=== PATIENT | female | born 1965 | race Caucasian/White ===

== ENCOUNTER 2017-05-26 16:46 | Emergency (ER) | payer SELFPAY ==
[2017-05-26 16:47] VITALS: BP 163/85; PULSE 76; RESP 18; TEMP 36.6; O2SAT 94; BMI 47.4
[2017-05-26 17:17] VITALS: O2SAT 98
--- NOTE | 2017-05-26 17:19 | EKG12_ITS ---
Test Reason : SOB Blood Pressure : / mmHG Vent. Rate : 084 BPM Atrial Rate : 084 BPM P-R Int : 186 ms QRS Dur : 078 ms QT Int : 362 ms P-R-T Axes : 034 -31 044 degrees QTc Int : 427 ms Normal sinus rhythm Left axis deviation Septal infarct , age undetermined Abnormal ECG Confirmed by SCARLETT ALVAREZ, JOSE ([id number]), web editor [address] ([id number]) on 05/29/2017 8:42:40 AM Referred By: NITESH Confirmed By:JOSE PANTOJA MD
--- NOTE | 2017-05-26 17:30 | RAD_ITS ---
STUDY: X-RAY CHEST REASON FOR EXAM: Female, 51 years old. Difficulty breathing with asthma TECHNIQUE: PA and lateral views of the chest. COMPARISON: None. FINDINGS: The lungs are clear and expanded. There is no demonstrated pleural abnormality. Normal size heart. Normal mediastinum and cheo. Normal visualized pulmonary arteries. Normal visualized aortic arch and descending thoracic aorta. Normal visualized thoracic spine. Normal visualized ribs, clavicles, and shoulders. There is no demonstrated abnormality of the visualized soft tissue structures of the upper abdomen. RAD/Chest PA and Lateral IMPRESSION: Normal x-ray examination of the chest. Electronically Signed: Colby Mackey DO at 17:58 EST Tel , Service support ,
--- NOTE | 2017-05-26 17:36 | NURSING ---
NO OLD EKGS
[2017-05-26] MEDS: Ipratropium/Albuterol Sulfate 3 ML AMPUL.NEB INHALATION (17:39)
[2017-05-26 17:44] VITALS: PULSE 88; RESP 18
[2017-05-26] MEDS: Albuterol 2.5 MG/3 ML VIAL.NEB. INHALATION (17:44)
--- NOTE | 2017-05-26 18:15 | ED.VISSUMM ---
- ER Visit Summary Date of Service: 05/26/17 Chief Complaint: Shortness of breath History of Present Illness: The patient is a 51 F who presents with shortness of breath. She has been having similar symptoms for the past 3 months. She reports a history of asthma as a child. She reports cough with occasional sputum. She reports wheezing. She states her chest is sore from coughing. She does not have a primary care physician. She has been to the urgent care multiple times. She has been on 2 courses of steroids and antibiotics. She was seen today and told that this was more emergent and to go to the ER as she might need IV steroids. Her pulse ox was 94% at the urgent care. Physical Examination: Afebrile vitals are stable pulse ox 94% on room air Heart regular rate and rhythm Patient has expiratory wheezing but good air exchange and is in no distress. She is not tachypneic and there are no retractions Abdomen soft Extremities nontender without edema Test Results: EKG shows sinus rhythm at a rate of 84. Two-view chest x-ray normal. Emergency Department Course and Treatment: Patient was treated with albuterol and Atrovent aerosols with improvement of symptoms. She does note that her niece is a smoker and when she is around her her symptoms are worse. I explained to the patient that given history of asthma and shortness of breath for months with multiple steroid courses she likely needs to be on maintenance medication such as inhaled corticosteroids. She currently does not have a physician or insurance and was referred to [facility]. She was placed on another steroid taper for acute management. He understands to return for new or worsening symptoms and was instructed on specific signs and symptoms to monitor for. Treatment Plan: [] Disposition: Discharge Impression: Asthma This note was generated with [employer] dictation software. It may contain incorrect words, spelling, and punctuation that were not noted in review of the chart prior to signing ED Disposition - Plan for ED Patient: Chief Complaint: Shortness of Breath Referrals: NOT,DEFINED [Primary Care Provider] -
--- NOTE | 2017-05-26 18:18 | ED.DCSUM_ITS ---
- ER Visit Summary Date of Service: 05/26/17 Chief Complaint: Shortness of breath History of Present Illness: The patient is a 51 F who presents with shortness of breath. She has been having similar symptoms for the past 3 months. She reports a history of asthma as a child. She reports cough with occasional sputum. She reports wheezing. She states her chest is sore from coughing. She does not have a primary care physician. She has been to the urgent care multiple times. She has been on 2 courses of steroids and antibiotics. She was seen today and told that this was more emergent and to go to the ER as she might need IV steroids. Her pulse ox was 94% at the urgent care. Physical Examination: Afebrile vitals are stable pulse ox 94% on room air Heart regular rate and rhythm Patient has expiratory wheezing but good air exchange and is in no distress. She is not tachypneic and there are no retractions Abdomen soft Extremities nontender without edema Test Results: EKG shows sinus rhythm at a rate of 84. Two-view chest x-ray normal. Emergency Department Course and Treatment: Patient was treated with albuterol and Atrovent aerosols with improvement of symptoms. She does note that her niece is a smoker and when she is around her her symptoms are worse. I explained to the patient that given history of asthma and shortness of breath for months with multiple steroid courses she likely needs to be on maintenance medication such as inhaled corticosteroids. She currently does not have a physician or insurance and was referred to [facility]. She was placed on another steroid taper for acute management. He understands to return for new or worsening symptoms and was instructed on specific signs and symptoms to monitor for. Treatment Plan: [] Disposition: Discharge Impression: Asthma This note was generated with [employer] dictation software. It may contain incorrect words, spelling, and punctuation that were not noted in review of the chart prior to signing ED Disposition - Plan for ED Patient: Chief Complaint: Shortness of Breath Referrals: NOT,DEFINED [Primary Care Provider] -
--- NOTE | 2017-05-26 18:18 | ED.DEP ---
ED Disposition - Plan for ED Patient: Chief Complaint: Shortness of Breath Instructions: Controlling Your Asthma Prescriptions: Prednisone 10 mg PO UD #33 tab Referrals: NOT,DEFINED [Primary Care Provider] - Jessica Luong [NON-STAFF] -
[2017-05-26 18:41] VITALS: BP 115/55; PULSE 86; RESP 16; O2SAT 96
== END 2017-05-26 18:42 | disposition home or self-care (01) ==
PROVIDERS: Emergency Provider Emergency Medicine
DX: J45.909 Unspecified asthma, uncomplicated (principal)
CPT/HCPCS: 71046; 93005; 94640; 99282